=== PATIENT | male | born 1975 | race Caucasian/White ===

== ENCOUNTER 2017-01-10 13:28 | Emergency (ER) | payer OTHER ==
[2017-01-10] MEDS ORDERED: predniSONE 20 MG TAB PO ONE (13:39)
[2017-01-10] MEDS ORDERED: IPRATROPIUM/ALBUTEROL 3 ML DEYVIAL IH ONE (13:39)
[2017-01-10 13:43] VITALS: RESP 16; TEMP 97.9
--- NOTE | 2017-01-10 14:01 | UCPHY ---
H & P Patient Type: New Chief Complaint Nursing Narrative: Cough, wheezing, and SOB worsening over past 2 months. Hx asthma. Time Seen by Provider: 01/10/17 13:35 HPI/ROS: This patient has nasal congestion and notes wheezing similar to previous asthma exacerbations. He thinks he may have seasonal allergies contributing to his asthma symptoms verses a mild cold. He is using his albuterol inhaler more frequently than usual and still having some wheezing and minimal dyspnea that prompted his visit. No other exacerbating factors are noted. ROS: No fevers or chills. No other constitutional symptoms. HEENT: Coryza but no other sinus symptoms. Neuro: No headache pulmonary: No pleuritic pain. No hemoptysis. No respiratory distress. Cardiovascular: No lightheadedness. No lower extremity swelling or leg pain. 7 point ROS is otherwise negative. Source: Patient Exam Limitations: No limitations - Personal History Current Tetanus Diphtheria and Acellular Pertussis (TDAP): Yes Tetanus Vaccine Date: within 10 years - Medical/Surgical History PMH: Mild asthma Hx Asthma: Yes Hx Chronic Respiratory Disease: No Hx Diabetes: No Hx Cardiac Disease: No Hx Renal Disease: No Hx Cirrhosis: No Hx Alcoholism: No Hx HIV/AIDS: No Hx Splenectomy or Spleen Trauma: No Other PMH: Asthma - Family History Significant Family History: No pertinent family hx - Social History Smoking Status: Never smoked Alcohol Use: Occasionally Drug Use: None - Physical Exam Exam: General Appearance: Alert, no distress. Eyes: Pupils equal and round no pallor or injection. ENT, Mouth: Mucous membranes moist. Respiratory: Mild expiratory wheeze bilaterally. Cardiovascular: Regular rate and rhythm. No murmur gallop rub. No leg edema Neurological: Alert with no deficits. Skin: Warm and dry, no rashes. Musculoskeletal: Neck is supple nontender. Extremities are symmetrical, full range of motion. Psychiatric: Mood and affect are normal DIFFERENTIAL DIAGNOSIS: After history and physical exam differential diagnosis was considered for URI versus seasonal allergies with mild asthma exacerbation. Constitutional: Initial Vital Signs Temperature (C) 36.6 C 01/10/17 13:30 Heart Rate 75 01/10/17 13:30 Respiratory Rate 16 01/10/17 13:30 Blood Pressure 142/96 H 01/10/17 13:30 O2 Sat (%) 96 01/10/17 13:30 O2 Delivery Mode Room Air Allergies/Adverse Reactions: Penicillins Allergy (Intermediate, Verified 01/10/17 13:42) Hives Home Medications: Medication Instructions Recorded Albuterol 01/10/17 Albuterol Hfa Anes Only [Proair 2 puffs IH Q4 PRN #1 mdi 01/10/17 Hfa Icu (*)] Fluticasone Hfa 220 Mcg [Flovent 2 puffs IH DAILY #1 mdi 01/10/17 220 MCG Hfa MDI (*)] predniSONE 40 mg PO DAILY #8 tab 01/10/17 Medical Decision Making ED Course/Re-evaluation: DuoNeb with increased aeration decreased wheeze and subjective improvement. He is also treated with 1st dose of prednisone. I counseled regarding asthma. Discussion: Mild asthma exacerbation improved with treatment for without evidence of lower respiratory infection or other complicating factors - Data Points Medications Given: Discontinued Medications Albuterol/Ipratropium (Duoneb) 3 ml IH EDNOW ONE Stop: 01/10/17 13:40 Last Admin: 01/10/17 14:01 Dose: 3 ml Prednisone (Prednisone) 60 mg PO EDNOW ONE Stop: 01/10/17 13:40 Last Admin: 01/10/17 14:01 Dose: 60 mg Departure - Departure Disposition: Home, Routine, Self-Care Clinical Impression: Asthma exacerbation Condition: Good Instructions: Asthma (ED) Additional Instructions: Diagnosis: Asthma exacerbation Plan: Humidifier Albuterol inhaler with spacer for cough, wheeze or shortness of breath Prednisone After he finished prednisone, start Flovent steroid inhaler in addition Follow up with primary care physician for any ongoing symptoms Good the emergency department for any significant worsening despite the treatment plan. Referrals: Delroy Bello DO [Primary Care Provider] - As per Instructions Prescriptions: Albuterol Hfa Anes Only [Proair Hfa Icu (*)] 2 puffs IH Q4 PRN #1 mdi PRN Reason: Wheezing Fluticasone Hfa 220 Mcg [Flovent 220 MCG Hfa MDI (*)] 2 puffs IH DAILY #1 mdi predniSONE 40 mg PO DAILY #8 tab - PQRS PQRS Measurement: NA
[2017-01-10 14:34] VITALS: BP 108/72; PULSE 69; O2SAT 98
== END 2017-01-10 14:30 | disposition home or self-care (01) ==
LOC: CED 13:28
DX: J45.901 Unspecified asthma with (acute) exacerbation (principal)
CPT/HCPCS: 99204-PO; G0463-PO

== ENCOUNTER 2017-04-09 19:34 | Observation (INO) | payer OTHER ==
--- NOTE | 2017-04-09 19:33 | EDPHY ---
H & P Time Seen by Provider: 04/09/17 19:33 HPI/ROS: CHIEF COMPLAINT: Postoperative bleeding HISTORY OF PRESENT ILLNESS: 42-year-old man had abdominoplasty on March 27 and then today was feeling fullness in his abdomen and had emergency surgery for internal bleeding by his plastic surgeon Dr. Butler. He is transported here by ambulance for further evaluation and observation after having surgery today to stop the bleeding. A repeat hematocrit transported by EMS was 27, his initial hematocrit was 48. Patient says he feels pretty well. He denies dizziness or abdominal pain or lightheadedness. REVIEW OF SYSTEMS: Eye: no change in vision ENT: no sore throat Cardiac: no chest pain or syncope Pulmonary: no cough or SOB Abdomen: No vomiting. Musculoskeletal: no back pain Skin: Abdominal plasty incision is covered and with is ice packs over the top. Neuro: no headache Constitutional: no fever : no urinary symptoms A comprehensive 10 point review of systems is otherwise negative aside from elements mentioned in the history of present illness. PAST MEDICAL HISTORY: asthma Social history: no tobacco, occasional MJ General Appearance: Alert and conversant, cooperative. Eyes: Pale conjunctiva. ENT, Mouth: Normal mucous membranes. Respiratory: Normal respiratory effort, breath sounds equal, lungs are clear to auscultation. Cardiovascular: Regular rate and rhythm. Gastrointestinal: Abdomen wrapped in a binder with ice packs, [address] Dressing not removed. Neurological: Alert and oriented x3. Normally conversant. Face symmetric, normal movement and sensation in all extremities. Skin: Warm and dry, no rashes. Musculoskeletal: No peripheral edema and no joint swelling. Psychiatric: Not agitated. 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 Plan to recheck hematocrit, admit to his plastic surgeon as per discussion with Dr. Butler prior to arrival. 2016: Discussed with Luke, Hgb 9.9, Hct 29 on Istat. Admit to him, he will arrange orders for inpatient. Constitutional: Initial Vital Signs Temperature (C) 36.9 C 04/09/17 19:45 Heart Rate 87 04/09/17 19:45 Respiratory Rate 20 04/09/17 19:45 Blood Pressure 119/67 04/09/17 19:45 O2 Sat (%) 96 04/09/17 19:45 O2 Delivery Mode Room Air Allergies/Adverse Reactions: Penicillins Allergy (Intermediate, Verified 01/10/17 13:42) Hives Home Medications: Medication Instructions Recorded Albuterol Hfa Anes Only [Proair 1 - 2 puffs IH Q4 PRN 04/09/17 Hfa Icu (*)] Fluticasone Hfa 220 Mcg [Flovent 1 puffs IH BID 04/09/17 220 MCG Hfa MDI (*)] Herbals/Supplements -Info Only 1 ea PO DAILY 04/09/17 Hydrocodone/Acetaminophen [[place] 1 each PO Q4 PRN 04/09/17 5/325 (*)] Ibuprofen [Motrin (*)] 600 mg PO TID 04/09/17 Medical Decision Making - Data Points Laboratory Results: Laboratory Results 04/09/17 20:06 04/09/17 20:06 04/09/17 04/09/17 04/09/17 20:06 20:06 20:06 WBC 13.86 10^3/uL H 10^3/uL (3.80-9.50) RBC 3.03 10^6/uL L 10^6/uL (4.40-6.38) Hgb 9.4 g/dL L g/dL (13.7-17.5) POC Hgb Hct 28.5 % L % (40.0-51.0) POC Hct MCV 94.1 fL fL (81.5-99.8) MCH 31.0 pg pg (27.9-34.1) MCHC 33.0 g/dL g/dL (32.4-36.7) RDW 14.1 % % (11.5-15.2) Plt Count 326 10^3/uL 10^3/uL (150-400) MPV 9.2 fL fL (8.7-11.7) Neut % (Auto) 94.7 % H % (39.3-74.2) Lymph % (Auto) 3.2 % L % (15.0-45.0) [place] % (Auto) 0.6 % L % (4.5-13.0) Eos % (Auto) 0.7 % % (0.6-7.6) Baso % (Auto) 0.3 % % (0.3-1.7) Nucleat RBC Rel Count 0.0 % % (0.0-0.2) Absolute Neuts (auto) 13.12 10^3/uL H 10^3/uL (1.70-6.50) Absolute Lymphs (auto) 0.44 10^3/uL L 10^3/uL (1.00-3.00) Absolute Monos (auto) 0.09 10^3/uL L 10^3/uL (0.30-0.80) Absolute Eos (auto) 0.10 10^3/uL 10^3/uL (0.03-0.40) Absolute Basos (auto) 0.04 10^3/uL 10^3/uL (0.02-0.10) Absolute Nucleated RBC 0.00 10^3/uL 10^3/uL (0-0.01) Immature Gran % 0.5 % % (0.0-1.1) Immature Gran # 0.07 10^3/uL 10^3/uL (0.00-0.10) POC Sodium Sodium 141 mEq/L mEq/L (134-144) POC Potassium Potassium 4.1 mEq/L mEq/L (3.5-5.2) POC Chloride Chloride 109 mEq/L mEq/L (97-110) Carbon Dioxide 21 mEq/l L mEq/l (22-31) Anion Gap 11 mEq/L mEq/L (8-16) POC BUN BUN 10 mg/dL mg/dL (7-23) Creatinine 0.6 mg/dL L mg/dL (0.7-1.3) POC Creatinine Estimated GFR > 60 Glucose 132 mg/dL H mg/dL (70-100) POC Glucose Calcium 8.4 mg/dL L mg/dL (8.5-10.4) Patient ABO/Rh A POSITIVE Antibody Screen NEGATIVE 04/09/17 20:05 WBC RBC Hgb POC Hgb 9.9 gm/dL L gm/dL (13.7-17.5) Hct POC Hct 29 % L % (40-51) MCV MCH MCHC RDW Plt Count MPV Neut % (Auto) Lymph % (Auto) [place] % (Auto) Eos % (Auto) Baso % (Auto) Nucleat RBC Rel Count Absolute Neuts (auto) Absolute Lymphs (auto) Absolute Monos (auto) Absolute Eos (auto) Absolute Basos (auto) Absolute Nucleated RBC Immature Gran % Immature Gran # POC Sodium 142 mEq/L mEq/L (134-144) Sodium POC Potassium 3.8 mEq/L mEq/L (3.3-5.0) Potassium POC Chloride 105 mEq/L mEq/L (97-110) Chloride Carbon Dioxide Anion Gap POC BUN 9 mg/dL mg/dL (7-23) BUN Creatinine POC Creatinine 0.6 mg/dL L mg/dL (0.7-1.3) Estimated GFR Glucose POC Glucose 146 mg/dL H mg/dL (70-100) Calcium Patient ABO/Rh Antibody Screen Medications Given: Discontinued Medications Fentanyl (Sublimaze) 50 mcg IVP ONCE ONE Stop: 04/09/17 20:43 Last Admin: 04/09/17 20:45 Dose: 50 mcg Point of Care Test Results: 04/09/17 20:05 POC Sodium 142 POC Potassium 3.8 POC Chloride 105 POC BUN 9 POC Creatinine 0.6 L POC Glucose 146 H Departure - Departure Disposition: [facility] Inpatient Acute Clinical Impression: Postoperative hemorrhage Qualifiers: Surgical complication system/body Area: subcutaneous tissue Condition: Good
[2017-04-09 20:21] LABS: % IMMATURE GRANULYOCYTES 0.5 % (0.0-1.1); ABSOLUTE IMMATURE GRANULOCYTES 0.07 10^3/uL (0.00-0.10); ADD DIFF? NO; ADD MORPH? NO; ADD SCAN? NO; ATYPICAL LYMPHOCYTE FLAG 0 (0-99); FRAGMENT RBC FLAG 0 (0-99); HEMATOCRIT 28.5 % (40.0-51.0); HEMOGLOBIN 9.4 g/dL (13.7-17.5); LEFT SHIFT FLG 0 (0-99); LIPEMIA HEMOLYSIS FLAG 80 (0-99); MEAN CELL VOLUME 94.1 fL (81.5-99.8); MEAN PLATELET VOLUME 9.2 fL (8.7-11.7); PLATELET CLUMPS FLAG 0 (0-99); PLATELET COUNT 326 10^3/uL (150-400); RED BLOOD CELL COUNT 3.03 10^6/uL (4.40-6.38); RED CELL DISTRIBUTION WIDTH 14.1 % (11.5-15.2)
[2017-04-09 20:34] LABS: ANION GAP 11 mEq/L (8-16); CALCIUM 8.4 mg/dL (8.5-10.4); CARBON DIOXIDE 21 mEq/l (22-31); CHLORIDE 109 mEq/L (97-110); CREATININE 0.6 mg/dL (0.7-1.3); GLOMERULAR FILTRATION RATE > 60; GLUCOSE 132 mg/dL (70-100); POTASSIUM 4.1 mEq/L (3.5-5.2); SODIUM 141 mEq/L (134-144)
[2017-04-09] MEDS ORDERED: fentaNYL 100 MCG/2 ML INJ IVP ONE (20:42)
[2017-04-09] MEDS ORDERED: fentaNYL 100 MCG/2 ML INJ ONE (20:43)
[2017-04-09] MEDS ORDERED: HYDROmorphONE/DILAUDID 2 MG TAB PO PRN (21:07)
[2017-04-09] MEDS ORDERED: LR 1,000 ML IV SCH (21:30)
[2017-04-10 05:15] LABS: HEMATOCRIT 26.5 % (40.0-51.0); HEMOGLOBIN 8.6 g/dL (13.7-17.5); MEAN CELL HEMOGLOBIN 31.2 pg (27.9-34.1); MEAN CELL HEMOGLOBIN CONCENTR. 32.5 g/dL (32.4-36.7); RED BLOOD CELL COUNT 2.76 10^6/uL (4.40-6.38); RED CELL DISTRIBUTION WIDTH 14.4 % (11.5-15.2)
--- NOTE | 2017-04-10 07:17 | SOAPPROG ---
SOAP Progress Note Assessment/Plan: Assessment: no evidence of further bleeding Plan: 04/10/17 07:17 Home with inst. Subjective: feels much better than pre op. minimal pain. ready to go home with instructions. Objective: Vital Signs Temp Pulse Resp BP Pulse Ox 36.9 C 73 14 114/66 97 04/10/17 00:10 04/10/17 00:10 04/10/17 00:10 04/10/17 00:10 04/10/17 00:10 Laboratory Results 04/10/17 04:44 04/09/17 04/10/17 04/11/17 05:59 05:59 05:59 Intake Total 520 Output Total 400 Balance 120 VSS. No evidence of further bleeding. Drain out minimal. ambulating and fairly comfortable. H/H 8.6 = stable. - Pending Discharge Pending Discharge Within 24 Hours: Yes Pending Discharge Date: 04/11/17 Pending Discharge Time: 11:00 ICD10 Worksheet Patient Problems: Problems Problem Status Onset Postoperative hemorrhage Acute
[2017-04-10] MEDS: HYDROCODONE/APAP 5/325 TAB PO PRN ×2 (08:00→15:20)
[2017-04-10 09:10] VITALS: O2SAT 95
[2017-04-10 12:25] VITALS: BP 101/60; PULSE 73; RESP 12; TEMP 98.2
--- NOTE | 2017-04-11 10:28 | GDS ---
[f rep st] DISCHARGE SUMMARY ADMISSION DIAGNOSIS: Postoperative bleeding with hematoma abdomen. CLINICAL SUMMARY: The patient is a 42-year-old male who underwent abdominal lipectomy approximately 2 weeks ago. He was seen in the office early on the day of admission, 04/09, for a routine followup and had suture removal. He returned 2 hours later with severe pain and swelling. He had evidence of significant bleeding within the abdominal surgical site. He was taken to the operating room after control of bleeding in an emergency situation in the recovery area. The patient was hypotensive with a temporary blood pressure of 50/30 and a tachycardia of 140 beats per minute. He was resuscitated with intravenous lactated ringers, became more stable. The wound was opened emergently and hemostasis controlled. He was subsequently taken to the operating room at [facility] with MAC anesthesia and local infiltration and the wound was repaired and drained. His immediate hemoglobin and hematocrit after surgery at approximately 1700 on 04/09 were 9 and 27. He was then transferred to [facility], seen in the emergency room by Dr. Jaffe. At that time, his H and H were 9.9 and 29. He remained stable with overnight observation with only mild drainage from his Jl Amaya drains. His H and H at 0500 on 04/10 were 8.6 and 27. It was felt that there was no further bleeding. His H and H 2 weeks ago were 17/48, so he lost at least half his blood volume with his bleeding episode. The patient was discharged with dressings and drains intact. He was instructed in limitation of activities, mild ambulation to minimize risks of DVT, incentive spirometry to minimize risks of postoperative atelectasis and pneumonia. He will follow up in my office early the week following surgery. He will contact my office and give us an update on his condition on Saturday, . He was discharged in good condition. DISCHARGE MEDICATIONS: He will continue: 1. [place] 5/325 for postoperative pain. 2. He also has Dilaudid 2 mg for more severe pain. He is to contact me immediately for any significant swelling or bleeding out of the drain after discharge from the hospital. /[id number]/MODL MTDD
== END 2017-04-10 15:45 | disposition home or self-care (01) ==
LOC: EDUNIT# → F3E 21:40
PROVIDERS: ADMIT Specialist; ATTEND Specialist
DX: L76.21 Postprocedural hemorrhage of skin and subcutaneous tissue following a dermatologic procedure (principal); L76.31 Postprocedural hematoma of skin and subcutaneous tissue following a dermatologic procedure
CPT/HCPCS: 96374; 99285; G0378; 82947-QW; J3010